=== PATIENT | female | born 1965 | race Asian ===

== ENCOUNTER 2025-02-15 14:46 | Outpatient (CLI) | payer OTHER, SELFPAY ==
--- NOTE | 2025-02-15 15:20 | MM_ITS ---
WS: [id number] BILATERAL 3D TOMOSYNTHESIS DIGITAL SCREENING MAMMOGRAPHY WITH CAD CLINICAL INFORMATION: SCREENING HISTORY: Screening mammogram. No current complaints. COMPARISON: New baseline TECHNIQUE: Bilateral CC and MLO views. FINDINGS: The breasts are composed of heterogeneous fibroglandular density tissue, which can limit the detection of small underlying mass lesions. No suspicious mass, asymmetry, calcifications, or architectural distortion. No evidence of malignancy. MM/MM scr tomosynthesis [id number] IMPRESSION: DENSITY: The breasts are heterogeneously dense, which may obscure small masses. BI-RADS: 1 - Negative FOLLOW UP: 1 Year Follow-up Recommend return to annual screening mammography.
== END 2025-02-15 14:47 | disposition home or self-care (01) ==
PROVIDERS: Visit Provider Nurse Practitioner Family
DX: Z12.31 Encounter for screening mammogram for malignant neoplasm of breast (principal); R92.333 Mammographic heterogeneous density, bilateral breasts; R92.323 Mammographic fibroglandular density, bilateral breasts
CPT/HCPCS: 77063; 77067